=== PATIENT | female | born 1980 | race Caucasian/White ===

== ENCOUNTER 2022-02-10 15:26 | Emergency (ER) | payer OTHER ==
[~2022-02-10] VITALS: Ht 165.1 cm; Wt 74.8 kg
[2022-02-10 15:37] VITALS: BP 142/93
[2022-02-10] MEDS ORDERED: KETOROLAC 60 MG/2 ML VIAL IM ONE (16:15)
--- NOTE | 2022-02-10 16:26 | NUR ---
41F PRESENTS TO ED WITH C/O DIZZINESS AND HEADACHE SINCE 1329 TODAY. PT REPORTS WHILE DRIVING TODAY FELT SUDDEN ONSET OF DIZZINESS AND STATES VISION "WENT BLACK" PT STATING VISION RETURNED TO NORMAL S/P TWO HOURS. STILL COMPLAINS OF SOME DIZZINESS. PT DENIES NUMBNESS TINGLING. UPON ARRIVAL, PT A&OX4, SPEAKING IN CLEAR FULL SENTENCES. PT DENIES CP SOB N/V/D.
[2022-02-10] MEDS ORDERED: ATA25 PO (16:37)
[2022-02-10] MEDS ORDERED: IBUP-2213 PO (16:37)
[2022-02-10 17:02] VITALS: BP 142/93
--- NOTE | 2022-02-10 17:02 | NUR ---
Patient discharged with v/s stable. Written and verbal after care instructions ABOUT GENERAL HEADACHE WITHOUT CAUSE AND PANIC ATTACK given and explained. Patient alert, oriented and verbalized understanding of instructions. Ambulatory with steady gait. All questions addressed prior to discharge. ID band removed. Patient advised to follow up with PMD. Rx of HYDROXYZINE HYDROCHLORIDE AND IBUPROFEN given. Patient educated on indication of medication including possible reaction and side effects. Opportunity to ask questions provided and answered.
== END 2022-02-10 17:02 | disposition home or self-care (01) ==
LOC: MED 15:26 → EDSEX 15:26 → MED 17:02
DX: R51.9 Headache, unspecified (principal); F41.9 Anxiety disorder, unspecified; R42 Dizziness and giddiness
CPT/HCPCS: 81002; 81025; 96372; 99283; J1885